=== PATIENT | female | born 1960 | race Caucasian/White ===

== ENCOUNTER 2017-05-06 02:59 | Emergency (ER) | payer OTHER ==
[2017-05-06] MEDS ORDERED: PREDNISONE 20 MG TAB PO ONE (03:15)
[2017-05-06] MEDS ORDERED: CLINDAMYCIN 150 MG CAP PO ONE (03:15)
[2017-05-06] MEDS ORDERED: HYDROCODONE/APAP 5/325MG TABLET PO ONE (03:22)
--- NOTE | 2017-05-06 03:22 | Emergency Department Record ---
History of Present Illness - General Chief complaint: Toothache Stated complaint: TOOTH ACHE Time Seen by Provider: 05/06/17 03:03 Source: Patient Mode of Arrival: Ambulatory Limitations: No limitations - History of Present Illness Initial comments: The patient is having tooth pain under the L lower 2nd and 3rd molars. She states she has a bridge in the area and thinks that is what is causing the problem. The onset was 18 hours ago. The patient denies any pain with swallowing , swelling, DANNA, fever, or TERRY. MD complaint: Tooth pain Onset/Timin -: Hour(s) Severity: Moderate Severity scale (1-10): 10 Consistency: Constant, Getting worse Improves with: None Worsens with: None Associated Symptoms: Toothache - Related Data Home Medications Medication Instructions Recorded Confirmed Last Taken Atorvastatin Calcium [Atorvastatin 10 mg PO DAILY 05/06/17 05/06/17 Unknown Calcium] Fluticasone Furoate [Flonase 9.9 ml NS DAILY 05/06/17 05/06/17 Unknown Sensimist] Omeprazole [Omeprazole] 40 mg PO DAILY 05/06/17 05/06/17 Unknown Previous Rx's Medication Instructions Recorded Clindamycin HCl [Cleocin HCl] 300 mg PO QID #20 capsule 05/06/17 Naproxen [Naprosyn] 250 mg PO BID #14 tablet 05/06/17 Prednisone [Prednisone 20Mg] 40 mg PO DAILY #10 tab 05/06/17 Allergies Allergy/AdvReac Type Severity Reaction Status Date / Time ampicillin Allergy HIVES Verified 05/06/17 03:07 codeine Allergy VOMITING Verified 05/06/17 03:20 hydrocodone [From Vicodin] Allergy VOMITING Verified 05/06/17 03:20 Penicillins Allergy HIVES Verified 05/06/17 03:07 Sulfa (Sulfonamide Allergy HIVES Verified 05/06/17 03:07 Antibiotics) Tetracyclines Allergy HIVES Verified 05/06/17 03:07 myacins Allergy HIVES Uncoded 05/06/17 03:07 Travel Screening - Travel/Exposure Within Last 30 Days Have you traveled within the last 30 days?: No - Travel/Exposure Within Last Year Have you traveled outside the [place] in the last year?: No - Additonal Travel Details Have you been exposed to anyone with a communicable illness?: No - Travel Symptoms Symptom Screening: None Review of Systems Constitutional: Denies: Chills, Fever Past Medical History - SOCIAL HISTORY Smoking Status: Never smoker Alcohol Use: Occasional Drug Use: None - RESPIRATORY Hx Respiratory Disorders: No - CARDIOVASCULAR Hx Cardio Disorders: Yes Comment:: high cholesterol - NEURO Hx Neuro Disorders: No - GI Hx GI Disorders: Yes Hx Reflux: Yes - Hx Genitourinary Disorders: No - ENDOCRINE Hx Endocrine Disorders: No - MUSCULOSKELETAL Hx Musculoskeletal Disorders: No - PSYCH Hx Psych Problems: No - HEMATOLOGY/ONCOLOGY Hx Hematology/Oncology Disorders: No Family Medical History Any Significant Family History?: No Physical Exam - General General Appearance: Alert, Cooperative, No acute distress - Head Head exam: Atraumatic, Normocephalic, Normal inspection - Eye Eye exam: Normal appearance, PERRL, EOMI - ENT ENT exam: Normal exam (There is L lower mandible tenderness but no edema, swelling, or erythema is present.), Normal orophraynx, TM's normal bilaterally Teeth exam: Normal inspection, Dental tenderness # (18 and 19. There is no gum line swelling, edema, or obvous abscess.). negative: Dental caries Throat exam: Normal inspection. negative: Tonsillar erythema, Tonsillomegaly, Tonsillar exudate - Neck Neck exam: Normal inspection, Full ROM. negative: Lymphadenopathy, Tenderness - Respiratory Respiratory exam: Normal lung sounds bilaterally. negative: Respiratory distress Course Vital Signs 05/06/17 03:00 Temperature 97.7 F Pulse Rate 78 Respiratory 20 Rate Blood Pressure 145/80 Pulse Ox 98 - Reevaluation(s) Reevaluation #1: I did explain to the patient that due to her allergies we are rather limited on prescribing her an Abx. She states she can take Cleocin with prednisone so we will give her a short supply of that. 05/06/17 03:19 Disposition Disposition: Discharge Clinical Impression: Pain, dental Disposition: Home, Self-Care Condition: (2) Stable Instructions: Toothache (ED) Additional Instructions: Please take the Clindamycin, Prednisone with Naprosyn as directed. Please see your Dentist ABHINAV. Prescriptions: Clindamycin HCl [Cleocin HCl] 300 mg PO QID #20 capsule Naproxen [Naprosyn] 250 mg PO BID #14 tablet Prednisone [Prednisone 20Mg] 40 mg PO DAILY #10 tab Forms: Patient Portal Access Time of Disposition: 03:22 Quality - Quality Measures Quality Measures: N/A - Blood Pressure Screening View Details: Yes Does Patient Have Any of the Following: No Blood Pressure Classification: Pre-Hypertensive BP Reading Systolic Measurement: 145 Diastolic Measurement: 80 Screening for High Blood Pressure: < Pre-Hypertensive BP, F/U Documented > [ [id number]] Pre-Hypertensive Follow-up Interventions: Referral to alternative/primary care provider.
[2017-05-06] MEDS ORDERED: ONDANSETRON 4 MG ODT TABLET SL ONE (03:24)
== END 2017-05-06 03:31 | disposition home or self-care (01) ==
LOC: ER 02:59
DX: K08.89 Other specified disorders of teeth and supporting structures (principal)
CPT/HCPCS: 99282; J7512